=== PATIENT | male | born 1940 | race Caucasian/White ===

== ENCOUNTER 2018-09-16 22:57 | Emergency (ER) | payer MEDICARE, BC ==
[~2018-09-16] VITALS: Ht 170.2 cm; Wt 77.3 kg
[2018-09-16] MEDS ORDERED: ZANT300T9 PO (23:04)
[2018-09-16] MEDS ORDERED: LISI10TA4 PO (23:04)
[2018-09-16] MEDS ORDERED: LIPI10TA PO (23:04)
[2018-09-16] MEDS ORDERED: [UNRECOGNIZED DRUG - OTHER] (23:04)
[2018-09-16] MEDS ORDERED: MULTCAP PO (23:04)
[2018-09-16] MEDS ORDERED: VITA500C19 PO (23:04)
[2018-09-16] MEDS ORDERED: ASPI81CH48 PO (23:04)
[2018-09-16] MEDS ORDERED: ADACEL/BOOSTRIX VACCINE (DIPHTH/PERTUSS/ACELL/TETANUS)0.5ML SYR (90715) IM ONE (23:45)
[2018-09-16] MEDS ORDERED: LIDOCAINE W/EPINEPHRINE 1% 20ML VIAL SC ONE (23:45)
[2018-09-17 00:56] VITALS: BP 143/83
== END 2018-09-17 01:01 | disposition home or self-care (01) ==
LOC: M ED 22:57
DX: S81.012A Laceration without foreign body, left knee, initial encounter (principal); W22.8XXA Striking against or struck by other objects, initial encounter; Y92.410 Unspecified street and highway as the place of occurrence of the external cause; Y93.01 Activity, walking, marching and hiking; Y99.9 Unspecified external cause status; I10 Essential (primary) hypertension; E78.5 Hyperlipidemia, unspecified; Z79.82 Long term (current) use of aspirin; Z79.899 Other long term (current) drug therapy